=== PATIENT | male | born 1950 | race Caucasian/White ===

== ENCOUNTER → 2017-02-26 | Outpatient (CLI) | payer OTHER | LOC: FIMAGING 14:23 | PROVIDERS: ATTEND Surgery | DX: K40.90 Unilateral inguinal hernia, without obstruction or gangrene, not specified as recurrent (principal) ==

== ENCOUNTER 2017-11-21 10:55 | Inpatient (IN) | payer OTHER ==
--- NOTE | 2017-11-21 11:14 | EDPHY ---
H & P Stated Complaint: redness at surgical site - Personal History Current Tetanus/Diphtheria Vaccine: Yes Current Tetanus Diphtheria and Acellular Pertussis (TDAP): Yes - Medical/Surgical History Hx Asthma: No Hx Chronic Respiratory Disease: No Hx Diabetes: No Hx Cardiac Disease: No Hx Renal Disease: No Hx Cirrhosis: No Hx Alcoholism: No Hx HIV/AIDS: No Hx Splenectomy or Spleen Trauma: No Other PMH: CHETAN inguinal repair, umbilical hernia repair, appy, tonsilectomy, R hand surgery - Social History Smoking Status: Current some day smoker Time Seen by Provider: 11/21/17 11:07 HPI/ROS: CHIEF COMPLAINT: Abdominal erythema HISTORY OF PRESENT ILLNESS: 67-year-old male postop day 4 post umbilical herniorrhaphy by Dr. Louisa Craven. On postop day 2 he noted erythema and was started on doxycycline. States that his skin was nicked in the preoperative phase. He denies: Fever, chills, nausea, vomiting, flu-like symptoms. REVIEW OF SYSTEMS: A ten point review of systems was performed and is negative with the exception of the items mentioned in the HPI PAST MEDICAL & SURGICAL HISTORY: No immunocompromised conditions SOCIAL HISTORY: Nonsmoker PHYSICAL EXAM (Prior to examination, patient consented to physical exam, hands were washed and my usual and customary physical exam procedures followed) 1) GENERAL: Well-developed, well-nourished, alert and oriented. Appears to be in no acute distress. Smiling appears to be in good spirits 2) HEAD: Normocephalic, atraumatic 3) HEENT: Pupils equal, round, reactive to light bilaterally. Sclera anicteric. 4) NECK: Full range of motion, no meningeal signs. 5) LUNGS: Clear auscultation bilaterally, no wheezes, no rhonchi, no retractions. 6) HEART: Regular rate and rhythm, no murmur, no heave, no gallop. 7) ABDOMEN: [The extent of erythema on 11/19 has been outlined. The patient has erythema has extended well beyond this at this time. He has noted erythema , induration, tenderness, increased warmth at the site. Otherwise abdomen is nontender. 8) MUSCULOSKELETAL: Moving all extremities, no focal areas of tenderness, no obvious trauma. No peripheral edema or discoloration. 9) BACK: No CVA tenderness, no midline vertebral tenderness, no fluctuance, no step-off, no obvious trauma, no visual or palpable abnormality. 10) SKIN: No rash, no petechiae. 11) Psychiatric: Patient is oriented X 3, there is no agitation. DIFFERENTIAL DIAGNOSIS: In no particular order including but not limited to cellulitis, abscess, abdominal compartment syndrome (Luis M Novoa Jeannette) Constitutional: Initial Vital Signs Temperature (C) 37 C 11/21/17 11:02 Heart Rate 62 11/21/17 11:02 Respiratory Rate 16 11/21/17 11:02 Blood Pressure 134/80 H 11/21/17 11:02 O2 Sat (%) 95 11/21/17 11:02 O2 Delivery Mode Room Air Allergies/Adverse Reactions: Penicillins Allergy (Verified 11/21/17 11:00) Home Medications: Medication Instructions Recorded Ascorbic Acid [Vitamin C 500 mg 1,000 mg PO BID 11/21/17 (*)] Docusate Sodium [Colace 100 MG (*)] 100 mg PO BID 11/21/17 Doxycycline Hyclate [Vibramycin 100 mg PO BID 11/21/17 100 MG (*)] Ibuprofen [Motrin (*)] 400 mg PO .Q5H PRN 11/21/17 Roselawn Carbonate [Roselawn 300 mg PO BID 11/21/17 Carbonate Cap 300 mg (*)] Polyethylene Glycol 3350 [Miralax 17 gm PO BID 11/21/17 17 gm (*)] oxyCODONE/APAP 5/325 [Percocet 1 - 2 tab PO Q4H PRN 11/21/17 5/325 (*)] Medical Decision Making ED Course/Re-evaluation: 11:16 a.m.: Consultation with Dr. Louisa Craven who is familiar with the patient' s case will come to the ER to evaluate patient. Case also discussed with secondary supervising physician Dr. Emy Parrish in the ER. 12:23 p.m.: Consultation with Dr. Louisa Craven who has requested that Dr. Nickie weaver examine the patient, who is currently in the room with the patient now, Dr. Louisa Craven will admit the patient primarily. (Luis M Novoa Jeannette) The patient was evaluated and managed by the physician occupational therapy assistant. I have reviewed this chart and I agree with the findings and plan of care as documented , as indicated by my signature. I am the secondary supervising physician. ( Emy Parrish) - Data Points Laboratory Results: Laboratory Results 11/21/17 11:27 11/21/17 11:27 11/21/17 11:27 Smear Review By Arelis SPAULDING MD Medications Given: Docusate Sodium (Colace) 100 mg PO BID [facility] Stop: 05/20/18 20:59 Last Admin: 11/22/17 07:51 Dose: 100 mg Cefazolin Sodium/Dextrose (Ancef 2 Gm) 100 mls @ 200 mls/hr IV Q8 ALEXUS PRN Reason: Protocol Stop: 12/21/17 21:59 Last Admin: 11/22/17 13:17 Dose: 100 mls Ibuprofen (Motrin) 600 mg PO Q8 PRN PRN Reason: *Pain, Inflammatory Stop: 05/20/18 12:39 Last Admin: 11/22/17 13:16 Dose: 600 mg Roselawn Carbonate (Roselawn Carbonate) 300 mg PO TID [facility] Stop: 05/20/18 15:59 Last Admin: 11/22/17 07:51 Dose: 300 mg Polyethylene Glycol (Miralax) 17 gm PO DAILY PRN PRN Reason: Constipation Stop: 05/20/18 12:38 Last Admin: 11/22/17 07:51 Dose: 17 gm Discontinued Medications Vancomycin/Sodium Chloride (Vancomycin 1 Gm (Premix)) 250 mls @ 250 mls/hr IV EDNOW ONE PRN Reason: Protocol Stop: 11/21/17 12:14 Last Admin: 11/21/17 11:26 Dose: 250 mls Cefazolin Sodium 2 gm/ Sodium (Chloride) 100 mls @ 200 mls/hr IV Q8H ALEXUS PRN Reason: Protocol Stop: 12/21/17 12:44 Last Admin: 11/21/17 23:13 Dose: Not Given Departure - Departure Disposition: [facility] Inpatient Acute Clinical Impression: Abdominal wall cellulitis Condition: Fair
[2017-11-21] MEDS ORDERED: VANCOMYCIN HCL/NORMAL SALINE 250 ML IV ONE (11:15)
[2017-11-21 11:41] LABS: PLATELET COUNT 256 10^3/uL (150-400)
[2017-11-21] MEDS ORDERED: CEFAZOLIN 1 GM/DEXTROSE/50 ML BAG IV ONE (12:39)
[2017-11-21] MEDS: ceFAZolin 2 GM in NS 100 ML IV SCH ×2 (12:43→23:13)
--- NOTE | 2017-11-21 12:50 | GHP ---
[f rep st] HISTORY AND PHYSICAL DATE OF ADMISSION: 11/21/2017 CHIEF COMPLAINT: Erythema on abdomen. HISTORY OF PRESENT ILLNESS: The patient is a 67-year-old man who underwent laparoscopic bilateral inguinal hernia repair with mesh and umbilical hernia repair on November 17, 2017. Surgery was uneventful. 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 He had a small indirect inguinal hernia on the left, and he had incarcerated omentum at his umbilicus. Mesh was placed at the umbilicus. On the , he was doing well, except he noticed erythema on his abdomen. We talked in the evening and he presented to a local ER. They felt that it was more of a contact dermatitis. Of note, when he was being prepped for the operating room, he did have aggressive clipping with some abrasions on his abdomen and Betadine prep was used. I saw him on office on November 19 at which time, I started him on doxycycline. The pattern of the erythema was marked and it was outside the area of a Tegaderm. It did have some streaking with it. He did not really have pain. He complained more of itching. PAST MEDICAL HISTORY: Includes BPH, colon polyps, hypomania, erectile dysfunction, history of Lyme disease, obesity, obstructive sleep apnea, thalassemia. PAST SURGICAL HISTORY: Includes appendectomy, hand surgery on the right, tonsillectomy, bilateral hernia repair and umbilical hernia repair. HOME MEDICATIONS: Include chiropractic supplements, lithium, most recently doxycycline 100 mg p.o. b.i.d., which was started on November 19, 2017 in the evening. ALLERGIES: Penicillin. FAMILY HISTORY: Significant for diabetes, breast cancer, lupus, and prostate cancer. SOCIAL HISTORY: He does drink some alcohol. He does not use tobacco. He is . He is self-employed in real estate. REVIEW OF SYSTEMS: Significant for pruritus. He has been afebrile. He does notice some warmth on his abdomen that waxes and wanes. PHYSICAL EXAMINATION: CONSTITUTIONAL: Well-nourished, well-groomed man in no acute distress. at bedside. HEENT: Normocephalic no gross hearing deficits. Mucous membranes moist. Pupils equal and round. No scleral icterus. LUNGS: Clear to auscultation bilaterally. No increased work of breathing. CARDIAC: Regular rate. No peripheral edema. ABDOMEN: He is erythematous by the umbilical incision, and then, there is an area of central clearing and then the erythema is more pale than when I saw him on Wednesday, but clearly extends well beyond the zaidi. No hernias palpated. The abdomen is not particularly warm to the touch. There is still some streaking. MUSCULOSKELETAL: Normal nails. SKIN: As above. NEURO: Grossly intact. PSYCH: Mood and affect normal. IMPRESSION/PLAN: The patient is a 67-year-old man status post bilateral inguinal hernia repair with mesh and umbilical hernia repair with mesh. He has erythema across his abdomen. Due to the unusual distribution. I have asked my colleague Dr. Nickie Vazquez to see him. We will consider admission versus broadening spectrum of antibiotics. While he was in the ER, the erythema expanding. We started him on Ancef. Admission until improved /[id number]/MODL MTDD
--- NOTE | 2017-11-21 13:46 | GCON ---
[f rep st] CONSULTATION INFECTIOUS DISEASE CONSULT DATE OF CONSULTATION: 11/21/2017 REQUESTING PHYSICIAN: Dr. Louisa Craven. REASON FOR CONSULT: To assist in the management of this 67-year-old male status post bilateral inguinal hernia repairs with mesh and umbilical hernia repair with mesh this past , now admitted with abdominal wall cellulitis. HISTORY OF PRESENT ILLNESS: The patient is a very pleasant 67-year-old male whose previous medical history is notable for the followin. Tobacco use disorder. 2. Psoriatic arthritis, not on any chronic biologics or corticosteroid or any other immunosuppressant. 3. Attention deficit. Regarding his present issues, the patient underwent a bilateral laparoscopic inguinal hernia repair with mesh as well as an umbilical hernia repair with mesh this past . He was found to have some incarcerated omentum around his umbilicus as well as a lipoma of the spermatic cord on the right and an indirect inguinal hernia on the left. Preoperatively, as per Dr. Craven with whom I discussed the case, the patient had his abdomen and groin area shaved, and the reports that the skin was nicked around the abdomen and mons pubis area. The patient had an uncomplicated surgery but, on postop day #1, developed some new erythema around the trocar incision of the umbilicus. He was seen at a local urgent care, and he was given no antibiotics, as these were felt to be unnecessary at the time. He was seen then in the office by Dr. Craven on Wednesday for progressive erythema. She prescribed him doxycycline 100 mg twice daily. The patient took approximately 4 doses of this and, unfortunately, the erythema worsened, so she told him to come to [facility] Emergency Department for further evaluation and treatment. Here in the emergency room, the patient is afebrile, but clearly has an extensive beet red band of erythema spreading across his abdomen. He denies any fevers at home, but has been taking Motrin for postoperative pain. No nausea or vomiting. No significant tenderness to his abdomen or any loss of sensation. No blisters. He was given a dose of vancomycin in the ER, and I am now asked to assist in his management. Speaking with the patient today, he denies any water exposure other than his shower. He does have a dog, but adamantly denies that the dog has been in contact with any of his wounds postoperatively. He denies any fevers or shaking chills, nausea, vomiting, or diarrhea. No lack of sensation in his abdomen, and overall he feels okay. No shaking chills. MEDICATIONS: Presently include lithium 300 mg t.i.d., Motrin, and MiraLAX. ALLERGIES: The patient told me that he took penicillin as a child and had an "intolerance." He states that this was not associated with any rash, throat closure, or tongue swelling or any anaphylactic reaction. He was just told that he did not tolerate it well. He has not had penicillin since then. SOCIAL HISTORY: The patient has a very supportive . They have a dog. He is self-employed. He occasionally smokes. Very rare alcohol. No illicit substances. No recent travel within or outside the [place]. Please see above regarding exposure history. REVIEW OF SYSTEMS: As outlined above. Otherwise, 10 systems reviewed and all are negative. FAMILY HISTORY: Unremarkable. PHYSICAL EXAM: VITAL SIGNS: T current is 37, heart rate is 62, blood pressure 134/80, 95% on room air. GENERAL: Overweight male, very pleasant, nontoxic, no apparent distress. HEENT : Atraumatic, normocephalic. Pupils equal, round, reactive to light. Extraocular movements are intact. No conjunctival injection. No icterus or petechiae. Mucous membranes are moist with no oral lesions noted. Dentition in fair repair. Neck: No cervical or supraclavicular lymphadenopathy. CARDIOVASCULAR: S1, S2. No rubs, gallops, or murmurs. LUNGS: Clear to auscultation anterolaterally with no rales, rhonchi, or wheeze. ABDOMEN: Soft. No tenderness to palpation. The patient has trocar incisions that have been glued along his umbilicus and suprapubic area and the sides of his abdomen. There is no oozing from these incisions, and there is no significant tenderness. His skin is notable for a beet red band of blanching erythema that apparently started around his umbilicus and spread and has spread to encompass a band along his anterior abdomen and is spreading leftward. There are no bullae. There is no lack of sensation. No blisters whatsoever. There are a few tiny folliculitis-type lesions in his groin. The area has been shaved. EXTREMITIES: No clubbing, cyanosis, or edema. No evidence of arthritis that I can appreciate. No sausage digits or other. SKIN: Otherwise unremarkable. NEUROLOGIC: Alert and oriented x3. No focal deficits. LABORATORY DATA: White blood cell count of 11.14, hematocrit of 41, platelet count of 256, 74% neutrophils. BUN and creatinine 12/0.7. No liver function tests have been performed. IMPRESSION: 67-year-old male with abdominal wall cellulitis after bilateral inguinal hernia and umbilical hernia repair with mesh. The erythema is spreading quickly, but the patient does not look toxic, thankfully. Clinical suspicion for necrotizing fasciitis, either mixed or polymicrobial is low. Strongly suspect streptococcal etiology, and doxycycline provides suboptimal streptococcal coverage. As noted above, a polymicrobial process seems less likely given the nature of his surgery and the fact that his abdominal exam is benign. He does not have risk factors for methicillin-resistant Staphylococcus aureus, either. PLAN: 1. Discontinue vancomycin. 2. Start Ancef 2 g IV q.8 hours. The area of erythema has been marked. 3. Hold off on addition of antitoxin antibiotic, such as clindamycin or linezolid for now. 4. Obtain swabs of the nares and groin for MRSA. 5. If clinically worsens, would have low threshold to broaden antibiotics and obtain imaging of the abdomen. Thank you very much for consulting Infectious Diseases. We will continue to follow this patient with you. /[id number]/MODL MTDD
[2017-11-21] MEDS: LITHIUM CARBONATE 300 MG TAB PO SCH ×2 (16:48→21:40)
[2017-11-21] MEDS: DOCUSATE SODIUM 100 MG CAP PO SCH (21:40)
[2017-11-21] MEDS: ceFAZolin 2 GM/DEXTROSE 100 ML IV SCH (22:00)
[2017-11-21] MEDS ORDERED: ceFAZolin 2 GM/DEXTROSE 100 ML IV NR (22:00)
[2017-11-21] MEDS: IBUPROFEN 600 MG TAB PO PRN (22:44)
[2017-11-21] MEDS: POLYETHYLENE GLYCOL 3350 17 GM PKT PO PRN (22:44)
[2017-11-22 04:52] LABS: PLATELET COUNT 242 10^3/uL (150-400)
[2017-11-22] MEDS: ceFAZolin 2 GM/DEXTROSE 100 ML IV SCH ×3 (05:20→21:26)
--- NOTE | 2017-11-22 07:38 | SOAPPROG ---
SOAP Progress Note Assessment/Plan: Assessment: s/p lap BIH and umbilical hernia repair Had skin trauma during clipping Cellulitus MUCH improved appreciate guidance from ID regarding length/type of abx S: Doing well, no pain O: Soft non tender Erythema greatly improved Plan: 11/22/17 07:37 Objective: Vital Signs Temp Pulse Resp BP Pulse Ox 36.5 C 55 L 14 119/71 95 11/22/17 07:19 11/22/17 07:19 11/22/17 07:19 11/22/17 07:19 11/22/17 07:19 Laboratory Results 11/22/17 04:33 11/21/17 11/22/17 11/23/17 05:59 05:59 05:59 Intake Total 350 Balance 350 ICD10 Worksheet Patient Problems: Problems Problem Status Onset Abdominal wall cellulitis Acute
[2017-11-22] MEDS: LITHIUM CARBONATE 300 MG TAB PO SCH ×3 (07:51→22:40)
[2017-11-22] MEDS: POLYETHYLENE GLYCOL 3350 17 GM PKT PO PRN ×2 (07:51→22:40)
[2017-11-22] MEDS: DOCUSATE SODIUM 100 MG CAP PO SCH ×2 (07:51→22:39)
[2017-11-22] MEDS: IBUPROFEN 600 MG TAB PO PRN ×2 (13:16→22:39)
--- NOTE | 2017-11-22 14:18 | PCMIDPN ---
Assessment/Plan: Assessment/Plan: * Abdominal wall cellulitis post herniorrhaphy: Clinical appearance and clinical course consistent with beta-hemolytic streptococci as etiology. Marked clinical improvement with cefazolin. Continue cefazolin and clinical monitoring over time. Anticipate will need at least 24 additional hours of IV antibiotic therapy. Thereafter, will decide on definitive antibiotic course. 11/22/17 14:15 Subjective: Patient with less warmth and tenderness over abdominal wall. Clinical course and history reviewed. Objective: Vital Signs Temp Pulse Resp BP Pulse Ox 36.5 C 55 L 14 119/71 95 11/22/17 07:19 11/22/17 07:19 11/22/17 07:19 11/22/17 07:19 11/22/17 07:19 Laboratory Results 11/22/17 04:33 11/21/17 11/22/17 11/23/17 05:59 05:59 05:59 Intake Total 350 Balance 350 Cefazolin # 2 MRSA screen pending - Physical Exam General Appearance: alert, no apparent distress EENT: No scleral icterus, No thrush Respiratory: lungs clear, No respiratory distress Cardiac/Chest: regular rate, rhythm, No systolic murmur Abdomen: other (Area previously demarcated erythema markedly decreased in intensity; some induration around the umbilicus; no drainage present; no areas of crepitus) Skin: No rash ICD10 Worksheet Patient Problems: Problems Problem Status Onset Abdominal wall cellulitis Acute
--- NOTE | 2017-11-22 16:35 | ASMTCASEMG ---
Living Arrangements What is your living Answers: With Spouse arrangement? Who do you live with? Type Of Residence What kind of residence do Answers: Apartment you live in? Discharge Plan Comments Coordination Status Comments Notes: Patient is a 67yo man status post bilateral inguinal hernia repair with mesh and umbilical hernia repair with mesh. Patient has erthema across his abdomen and was started on Ancef. The erthema was expanding in the ER. No orders at this time. D/C plan TBD. CM will follow. Date Signed: 11/22/2017 04:34 PM Electronically Signed By:Jamaica Currie LCSW
[2017-11-23] MEDS: ceFAZolin 2 GM/DEXTROSE 100 ML IV SCH ×2 (05:32→14:39)
[2017-11-23] MEDS: DOCUSATE SODIUM 100 MG CAP PO SCH (09:00)
[2017-11-23] MEDS: LITHIUM CARBONATE 300 MG TAB PO SCH ×2 (09:00→15:54)
--- NOTE | 2017-11-23 09:22 | PDMN ---
Medical Necessity Medical necessity: Change to IP, as of 11/23/17, per MD; los >2 mn for ongoing management of abdominal wall cellulitis s/p bilateral inguinal hernia repair & umbilical hernia repair w/mesh, admit for further monitoring, ID consult & IV abx; per progress note & order 11/23/17
--- NOTE | 2017-11-23 15:25 | SOAPPROG ---
SOAP Progress Note Assessment/Plan: Assessment: s/p lap BIH and umbilical hernia repair Had skin trauma during clipping Cellulitus Likely strep MUCH improved on abx appreciate guidance from ID regarding length/type of abx S: Doing well, no pain O: Sitting in chair Soft non tender Erythema greatly improved Plan: 11/22/17 07:37 11/23/17 15:24 Objective: Vital Signs Temp Pulse Resp BP Pulse Ox 36.6 C 55 L 14 140/87 H 96 11/23/17 07:06 11/23/17 07:06 11/23/17 07:06 11/23/17 07:06 11/23/17 07:06 Laboratory Results 11/22/17 04:33 11/22/17 11/23/17 11/24/17 05:59 05:59 05:59 Intake Total 350 1200 Balance 350 1200 ICD10 Worksheet Patient Problems: Problems Problem Status Onset Abdominal wall cellulitis Acute
[2017-11-23 15:29] VITALS: BP 111/66
[2017-11-23] MEDS ORDERED: cefTRIAXone 2 GM in STERILE WATER INJ 20 ML IV SCH (15:30)
--- NOTE | 2017-11-23 16:00 | ASMTLACE ---
LACE Length of stay for Answers: 2 days current admission Acuity / Level of Answers: Yes Care: Did the patient have an inpatient admission? Comorbidities - select Answers: Other Notes: abdominal wall cellulit is all that apply # of Emergency department Answers: 1-2 visits in the last 6 months Score: 7 Date Signed: 11/23/2017 03:59 PM Electronically Signed By:WILLIE Hernandez
--- NOTE | 2017-11-23 18:59 | PCMIDPN ---
Assessment/Plan: Assessment/Plan: * Abdominal wall cellulitis post herniorrhaphy: Continued improvement with IV cefazolin. Suspect this is most likely associated with beta-hemolytic streptococci. Given clinical improvement, think can transition to outpatient antibiotic therapy. Plan to continue this with IV ceftriaxone for once daily dosing and to achieve adequate tissue levels. Favor this over transition to oral antibiotic therapy which I think has a higher risk of treatment failure. Risks and benefits of ceftriaxone including allergic reactions, changes in blood counts/liver function tests/kidney function, or biliary sludging all discussed with patient. Will provide ceftriaxone on with peripheral IV with anticipated 7 day course of therapy and follow-up in my office in 5 days for repeat assessment at which point transition to oral antibiotic therapy may be feasible. 11/23/17 18:56 Subjective: Patient feels significantly improved with tenderness mainly around periumbilical region. Objective: Vital Signs Temp Pulse Resp BP Pulse Ox 37.2 C 55 L 14 111/66 95 11/23/17 15:28 11/23/17 15:28 11/23/17 15:28 11/23/17 15:28 11/23/17 15:28 Laboratory Results 11/22/17 04:33 11/22/17 11/23/17 11/24/17 05:59 05:59 05:59 Intake Total 350 1200 Balance 350 1200 Cefazolin # 3 MRSA screen pending - Physical Exam General Appearance: alert, no apparent distress Abdomen: non-tender, other (Erythema significantly receded from previously demarcated line; mild residual erythema with induration in umbilical region; no purulence, bulla or crepitus) - Time Spent With Patient Time Spent with Patient: greater than 35 minutes Time Spent with Patient: Greater than 35 minutes spent on this patients care, greater than 50% of time spent counseling, educating, and coordinating care regarding the above mentioned plan. ICD10 Worksheet Patient Problems: Problems Problem Status Onset Abdominal wall cellulitis Acute
--- NOTE | 2018-01-07 04:07 | GDS ---
[f rep st] DISCHARGE SUMMARY REASON FOR ADMISSION: Cellulitis on the abdomen. OTHER PERTINENT DIAGNOSIS: Obstructive sleep apnea. REASON FOR ADMISSION: A 67-year-old man who underwent laparoscopic bilateral inguinal hernia repair with mesh and umbilical hernia repair November 17, 2017. On the , he noted erythema on his abdomen. He presented to the ER. I saw him in the office on November 19, at which time I started him on doxycycl ine. The erythema was expanding. He was admitted to the hospital and started on Ancef 2 g IV q.8 hours. When the erythema was recedin g, he was able to be discharged home. CONDITION ON DISCHARGE: He is discharged on ceftriaxone for 7 days to be infused in on , chema ating diet, pain controlled. /[id number]/MODL
== END 2017-11-23 17:50 | disposition home or self-care (01) | DRG 603 ==
LOC: INTOOBSV 13:03 → OBSVTOIN 13:03 → UNDOADMIN 13:03 → F3E 13:40 → UNDODISIN 11-23 17:50
PROVIDERS: ADMIT Surgery; ATTEND Surgery
DX: L03.311 Cellulitis of abdominal wall (principal); G47.33 Obstructive sleep apnea (adult) (pediatric); L40.50 Arthropathic psoriasis, unspecified; F17.210 Nicotine dependence, cigarettes, uncomplicated; Z86.010 Personal history of colon polyps
CPT/HCPCS: 96365; G0378; J0690; J0696; J3370

== ENCOUNTER → 2018-07-20 | Outpatient (CLI) | payer OTHER | LOC: FIMAGING 11:53 | PROVIDERS: ATTEND Family Medicine | DX: M24.841 Other specific joint derangements of right hand, not elsewhere classified (principal) ==

== ENCOUNTER → 2018-09-27 | Outpatient (CLI) | payer OTHER | LOC: BHFA 08:30 | PROVIDERS: ATTEND Internal Medicine Cardiovascular Disease | DX: R00.2 Palpitations (principal) ==

== ENCOUNTER 2018-11-29 18:39 | Emergency (ER) | payer OTHER | END 2018-11-29 19:42 | disposition home or self-care (01) ==